=== PATIENT | male | born 1960 | race Caucasian/White ===

== ENCOUNTER 2023-10-19 16:38 | Emergency (ER) | payer MEDICARE ==
[2023-10-19] MEDS: Aspirin 81 MG Tab.Chew PO ONE (17:15)
[2023-10-19] MEDS: Losartan 50 MG Tab PO ONE (17:16)
[2023-10-19] MEDS: Warfarin 5 MG Tab PO ONE (17:16)
[2023-10-19 17:23] LABS: BASOPHILS ABSOLUTE AUTO 0.08 K/uL (0.00-0.10); BASOPHILS PERCENT AUTO 0.9 % (0.1-1.3); EOSINOPHILS ABSOLUTE AUTO 0.35 K/uL (0.00-0.40); HEMATOCRIT 35.6 % (38.4-49.7); HEMOGLOBIN 12.1 g/dL (12.9-16.9); IMMATURE GRAN PERCENT AUTO 0.2 % (0.0-0.7); LYMPHOCYTES ABSOLUTE AUTO 1.49 K/uL (0.8-3.3); LYMPHOCYTES PERCENT AUTO 16.9 % (11.4-47.7); MEAN CORPUSCULAR HEMOGLOBIN 31.6 pg (31.6-35.5); MONOCYTES ABSOLUTE AUTO 0.74 K/uL (0.20-0.90); MONOCYTES PERCENT AUTO 8.4 % (3.3-12.6); NEUTROPHILS ABSOLUTE AUTO 6.16 K/uL (1.0-7.6); NEUTROPHILS PERCENT AUTO 69.6 % (40.0-78.1); PLATELET COUNT,PLT 538 K/uL (130-375); RED BLOOD CELL COUNT 3.83 M/uL (4.14-5.76); WHITE BLOOD CELL COUNT,WBC 8.8 K/uL (3.2-11.0)
[2023-10-19 17:25] LABS: IMMATURE GRAN ABSOLUTE AUTO 0.02 K/uL (0.00-0.23)
[2023-10-19 17:45] LABS: A/G RATIO 0.9 (1.2-2.2); ALANINE AMINOTRANSFERASE,ALT 43 U/L (12-78); ALBUMIN 3.1 g/dL (3.4-5.0); ALKALINE PHOSPHATASE 67 U/L (46-116); ASPARTATE AMNIOTRANSFERASE,AST 19 U/L (15-37); BILIRUBIN TOTAL 0.4 mg/dL (0.2-1.0); BLOOD UREA NITROGEN,BUN 14 mg/dL (7-18); CARBON DIOXIDE,CO2 27 mmol/L (21-32); CHLORIDE,CL 99 mmol/L (100-108); CREATININE 1.2 mg/dL (0.8-1.3); ESTIMATED GFR 67 mL/min (>60); GLUCOSE RANDOM 99 mg/dL (74-106); POTASSIUM,K 4.4 mmol/L (3.6-5.2); PROTEIN TOTAL,TP 6.5 g/dL (6.4-8.2); SODIUM,NA 135 mmol/L (140-148)
[2023-10-19 17:47] LABS: ANION GAP 13.4 mmol/L (5.0-14.0)
[2023-10-19] MEDS: Amiodarone 200 MG Tab PO ONE (19:17)
== END 2023-10-19 19:31 | disposition home or self-care (01) ==
LOC: JP.ED 16:38
DX: I48.91 Unspecified atrial fibrillation (principal); Z86.16 Personal history of COVID-19; Z79.82 Long term (current) use of aspirin; Z79.899 Other long term (current) drug therapy
CPT/HCPCS: 36415; 71045; 80053; 83735; 85025; 93005; 93010; 99284; 99285; A9270